=== PATIENT | male | born 1985 | race Caucasian/White ===

== ENCOUNTER → 2022-06-04 14:50 | Outpatient (BNVA) | payer MEDICARE, OTHER, SELFPAY | PROVIDERS: Visit Provider Specialist | DX: S06.9XAS Unspecified intracranial injury with loss of consciousness status unknown, sequela (principal); Z98.890 Other specified postprocedural states; R27.0 Ataxia, unspecified; R47.89 Other speech disturbances; H53.8 Other visual disturbances; V20.09 Other motorcycle driver injured in collision with pedestrian or animal in nontraffic accident | CPT/HCPCS: 99204; 99205 ==

== ENCOUNTER → 2022-10-01 14:56 | Outpatient (BNVA) | payer MEDICARE, OTHER, SELFPAY | PROVIDERS: Visit Provider Specialist | DX: G11.9 Hereditary ataxia, unspecified (principal); Z87.820 Personal history of traumatic brain injury | CPT/HCPCS: 99213 ==